=== PATIENT | male | born 1970 | race Caucasian/White ===

== ENCOUNTER → 2016-09-10 | Outpatient (CLI) | payer SELFPAY ==
[2016-09-10 17:31] LABS: Basophils % (A) 1 %; CH 31.8; CHCM 34.7; Eosinophils # (A) 0.1 k/uL (0-0.7); Eosinophils % (A) 2 %; HCT 48.1 % (39.0-53.0); HGB 16.7 gm/dL (13.0-17.5); Luc # (Auto) 0.18; Luc % (Auto) 3; Lymphocytes # (A) 2.2 k/uL (1.0-4.8); Lymphocytes % (A) 32 %; MCHC 34.7 g/dL (31.0-37.0); MCV 92.2 fL (80.0-100.0); Mean Platelet Volume 7.4; Monocytes # (A) 0.3 k/uL (0-1.0); Monocytes % (A) 5 %; Neutrophils % (A) 58 %; RBC 5.22 m/uL (4.30-5.90); RDW 12.6 % (11.5-15.5); WBC 6.8 k/uL (3.8-10.6); WBC (Perox) 7.06
[2016-09-10 18:22] LABS: C Reactive Protein <5.0 mg/L (<10.0); Rheumatoid Factor, Qnt <9 IU/mL (<12)
[2016-09-10 19:08] LABS: Vitamin B12 314 pg/mL (239-931)
[2016-09-10 19:31] LABS: Erythrocyte Sedimentation Rate 2 mm/hr (0-15)
[2016-09-10 21:52] LABS: Hemoglobin A1C 5.4 % (4.2-6.1)
[2016-09-11 08:47] LABS: Lyme Antibodies Total(IgG/IgM) 0.02 (<0.90)
[2016-09-11 12:34] LABS: HLA B27 NEGATIVE; HLA B27 Comment SEEBELOW
[2016-09-12 20:18] LABS: ANA w/Reflex to Titer NEGATIVE (NEGATIVE)
== END | disposition home or self-care (01) ==
LOC: LABWHC1 16:46
PROVIDERS: ATTEND Physical Medicine & Rehabilitation
DX: G89.29 Other chronic pain (principal); E29.1 Testicular hypofunction
CPT/HCPCS: 36415; 82607; 82672; 83036; 84402; 84403; 84443; 85025; 85652; 86038; 86060; 86140; 86431; 86618; 86812

== ENCOUNTER → 2018-04-05 | Outpatient (CLI) | payer OTHER ==
[2018-04-05 16:48] LABS: ALT 25 U/L (10-49); AST 24 U/L (14-35)
== END | disposition home or self-care (01) ==
LOC: LABWHC1 10:43
PROVIDERS: ATTEND Physical Medicine & Rehabilitation
DX: M54.5 Low back pain (principal); G89.4 Chronic pain syndrome; G44.59 Other complicated headache syndrome; E29.1 Testicular hypofunction; E34.9 Endocrine disorder, unspecified; M50.10 Cervical disc disorder with radiculopathy, unspecified cervical region; M47.22 Other spondylosis with radiculopathy, cervical region; M47.26 Other spondylosis with radiculopathy, lumbar region; M51.16 Intervertebral disc disorders with radiculopathy, lumbar region; M75.41 Impingement syndrome of right shoulder; M25.511 Pain in right shoulder; T40.2X5A Adverse effect of other opioids, initial encounter; G89.11 Acute pain due to trauma
CPT/HCPCS: 36415; 82672; 84153; 84402; 84403; 84450; 84460

== ENCOUNTER → 2018-05-21 | Outpatient (CLI) | payer OTHER | LOC: LABWHC1 11:38 | PROVIDERS: ATTEND Physical Medicine & Rehabilitation | DX: M54.2 Cervicalgia (principal); M54.6 Pain in thoracic spine; M54.5 Low back pain; G89.29 Other chronic pain; G89.11 Acute pain due to trauma; G44.59 Other complicated headache syndrome; M50.10 Cervical disc disorder with radiculopathy, unspecified cervical region; M47.22 Other spondylosis with radiculopathy, cervical region; M51.16 Intervertebral disc disorders with radiculopathy, lumbar region; M47.26 Other spondylosis with radiculopathy, lumbar region; E34.9 Endocrine disorder, unspecified; M75.41 Impingement syndrome of right shoulder; M25.511 Pain in right shoulder; G89.21 Chronic pain due to trauma | CPT/HCPCS: 36415; 84550 ==

== ENCOUNTER → 2020-09-19 | Outpatient (CLI) | payer OTHER ==
--- NOTE | 2020-09-19 07:35 | US ---
EXAMINATION TYPE: US liver DATE OF EXAM: 09/19/2020 COMPARISON: NONE CLINICAL HISTORY: R94.5 Abnormal Liver Function. abnormal labs. EXAM MEASUREMENTS: Liver Length: 15.3 cm Gallbladder Wall: 0.2 cm CBD: 0.4 cm Right Kidney: 12.1 x 5.8 x 6.0 cm Pancreas: wnl Liver: wnl Gallbladder: wnl Evidence for sonographic Gonsalves's sign: neg CBD: wnl Right Kidney: Obscured by overlying bowel gas IMPRESSION: No distinct abnormality seen.
== END | disposition home or self-care (01) ==
LOC: RADUSWWP 07:02
PROVIDERS: ATTEND Internal Medicine
DX: R94.5 Abnormal results of liver function studies (principal)
CPT/HCPCS: 76705

== ENCOUNTER 2020-10-29 06:18 | Day surgery (SDC) | payer OTHER ==
[2020-10-25 14:20] VITALS: BMI 29.5
[~2020-10-29 06:18] MED LIST: ACETAMINOPHEN TAB 500 MG TAB PO PRN; DEXAMETHASONE SOD PHOSPHATE 4 MG/ML 1 ML VIAL IV ONE; HEPARIN SODIUM,PORCINE/PF 5,000 UNIT/0.5 ML SYRINGE SQ PRN; LIDOCAINE 1% (10MG/ML) FOR IV START INTRADERMA PRN; Pre Op ABX Message 1 EACH MISC MISCELLANE ONE
[2020-10-29 06:51] VITALS: RESP 16; TEMP 96.8
[2020-10-29] MEDS ORDERED: HYDROmorphone 0.5 MG/0.5 ML SYRINGE IVP PRN (07:00)
[2020-10-29] MEDS: LACTATED RINGERS 1,000 ML IV SCH ×2 (07:01→07:53)
[2020-10-29] MEDS ORDERED: ONDANSETRON 4 MG/2 ML VIAL ONE (07:06)
[2020-10-29] MEDS ORDERED: PROPOFOL 10 MG/ML 20 ML VIAL IV ONE (07:46)
[2020-10-29] MEDS ORDERED: MIDAZOLAM 2 MG/2 ML VIAL ONE (07:46)
[2020-10-29] MEDS ORDERED: fentaNYL (PF) 50 MCG/ML 2 ML AMP ONE (07:46)
[2020-10-29] MEDS ORDERED: BUPIVACAINE (PF) 0.25% 30 ML VIAL SQ ONE (08:22)
[2020-10-29] MEDS ORDERED: LACTATED RINGERS 1,000 ML IV ONE (08:25)
--- NOTE | 2020-10-29 08:37 | P.GSHP ---
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 Patient has a previous shave biopsy performed. Past Medical History Past Medical History: Cancer, Hyperlipidemia, Hypertension Additional Past Medical History / Comment(s): Current skin cancer on left upper arm. "High normal Cholesterol". History of Any Multi-Drug Resistant Organisms: None Reported Additional Past Surgical History / Comment(s): Cyst removed near eye. Past Anesthesia/Blood Transfusion Reactions: No Reported Reaction, Family History of Problems w/ Anesthesia Additional Past Anesthesia/Blood Transfusion Reaction / Comment(s): Mom had PONV. Past Psychological History: No Psychological Hx Reported Smoking Status: Current every day smoker Past Alcohol Use History: Occasional Additional Past Alcohol Use History / Comment(s): Smoked for 12 years on and off, currently only smokes 1-2 cigarettes per day. Past Drug Use History: None Reported - Past Family History Mother Family Medical History: Cancer Additional Family Medical History / Comment(s): Colon Cancer. Medications and Allergies Home Medications Medication Instructions Recorded Confirmed Type diazePAM [Diazepam] 10 mg PO HS 04/05/18 10/29/20 History Atorvastatin [Lipitor] 10 mg PO HS 10/25/20 10/29/20 History Losartan [Cozaar] 25 mg PO HS 10/25/20 10/29/20 History Meclizine [Antivert] 12.5 mg PO HS 10/25/20 10/29/20 History Multivitamins, Thera [Multivitamin 1 tab PO HS 10/25/20 10/25/20 History (formulary)] Vitamin B-12 (Unknown Dose) 1 tab PO HS 10/25/20 10/29/20 History Allergies Allergy/AdvReac Type Severity Reaction Status Date / Time No Known Allergies Allergy Verified 10/29/20 06:45 Surgical - Exam Vital Signs Temp Pulse Resp BP Pulse Ox 96.8 F L 63 16 127/73 97 10/29/20 06:49 10/29/20 06:49 10/29/20 06:49 10/29/20 06:49 10/29/20 06:49 - General well developed, well nourished, no distress - Eyes PERRL - ENT normal pinna - Neck no masses - Respiratory normal expansion - Cardiovascular Rhythm: regular - Abdomen Abdomen: soft, non tender - Integumentary 1.5 cm squamous cell carcinoma left upper arm
[2020-10-29 09:03] VITALS: BP 128/81; PULSE 67
--- NOTE | 2020-11-13 12:57 | P.OP ---
Date of Procedure: 10/29/20 Preoperative Diagnosis: Left upper arm squamous cell carcinoma Postoperative Diagnosis: Left upper arm squamous cell carcinoma Procedure(s) Performed: Wide local excision of left upper arm squamous cell carcinoma Anesthesia: MAC Surgeon: Reinaldo Ovalles Estimated Blood Loss (ml): 5 Pathology: other (Left upper arm squamous cell carcinoma) Condition: stable Disposition: PACU Description of Procedure: The patient's placed on the operative table in the supine position. He received general anesthesia. His left arm was prepped and draped usual fashion. Local skin incision was made around the skin lesion. Using left cautery and subcutaneous tissue divided. The specimen measured 4 x 3 x 0.5 cm. Skin was closed interrupted 3-0 nylon suture. Patient top she will was sent to recovery room in stable condition.
== END 2020-10-29 09:13 | disposition home or self-care (01) ==
LOC: OR 06:18
PROVIDERS: ATTEND Surgery
DX: C44.629 Squamous cell carcinoma of skin of left upper limb, including shoulder (principal); I10 Essential (primary) hypertension; E78.5 Hyperlipidemia, unspecified; F17.210 Nicotine dependence, cigarettes, uncomplicated; Z79.899 Other long term (current) drug therapy
CPT/HCPCS: 88305; 11606; J2250; J1100; J2405; J3010; J2704; J1644

== ENCOUNTER → 2021-08-03 | Outpatient (CLI) | payer BC ==
[2021-08-03 17:03] LABS: Basophils # (A) 0.04 X 10*3/uL (0.00-0.10); Basophils % (A) 0.7 %; Eosinophils # (A) 0.23 X 10*3/uL (0.04-0.35); Eosinophils % (A) 4.2 %; HCT 49.3 % (39.6-50.0); HGB 16.1 g/dL (13.0-17.0); Immature Grans, Automated 0.2 %; Lymphocytes # (A) 2.15 X 10*3/uL (0.90-5.00); Lymphocytes % (A) 39.2 %; MCH 31.4 pg (27.0-32.0); MCHC 32.7 g/dL (32.0-37.0); MCV 96.1 fL (80.0-97.0); Mean Platelet Volume 11.4 fL (9.5-12.2); Monocytes # (A) 0.53 X 10*3/uL (0.20-1.00); Monocytes % (A) 9.7 %; NRBC Per 100 WBC 0 /100 WBCS (0.0-0.0); Neutrophils # (A) 2.52 X 10*3/uL (1.80-7.70); Platelet Count 210 X 10*3/uL (140-440); RBC 5.13 X 10*6/uL (4.40-5.60); RDW 12.1 % (11.5-14.5); WBC 5.48 X 10*3/uL (4.50-10.00)
[2021-08-03 18:06] LABS: ALT 70 U/L (10-49); AST 34 U/L (14-35); African American GFR (CKD) 80.7 (60.0-200.0); Albumin 4.3 g/dL (3.8-4.9); Albumin/Globulin Ratio 1.95 (1.60-3.17); Alkaline Phosphatase 50 U/L (41-126); BUN/Creat Ratio 14.83 Ratio (12.00-20.00); Blood Urea Nitrogen 17.8 mg/dL (9.0-27.0); Calcium 9.4 mg/dL (8.7-10.3); Carbon Dioxide 27.4 mmol/L (20.0-27.5); Chloride 105 mmol/L (96-109); Chol/HDL Ratio 3.19 Ratio; Globulin 2.2 g/dL (1.6-3.3); Glucose 98 mg/dL (70-110); Magnesium 1.7 mg/dL (1.5-2.4); Non-African American GFR(CKD) 69.6 (60.0-200.0); Potassium 4.2 mmol/L (3.5-5.5); Sodium 142 mmol/L (135-145); Total Protein 6.5 g/dL (6.2-8.2)
[2021-08-05 13:54] LABS: Hepatitis A Antibody IgM Nonreactive (Nonreactive); Hepatitis B Core IgM Nonreactive (Nonreactive); Hepatitis B Surface Antigen Nonreactive (Nonreactive); Hepatitis C IgG Antibody Nonreactive (Nonreactive)
== END | disposition home or self-care (01) ==
LOC: LABWHC1 10:58
PROVIDERS: ATTEND Nurse Practitioner Adult Health
DX: Z00.00 Encounter for general adult medical examination without abnormal findings (principal); E78.5 Hyperlipidemia, unspecified; I10 Essential (primary) hypertension
CPT/HCPCS: 36415; 80053; 80061; 80074; 83735; 84443; 85025